=== PATIENT | female | born 1960 | race African-American/Black ===

== ENCOUNTER 2017-04-20 19:08 | Observation (INO) ==
[2017-04-20] MEDS ORDERED: KETOROLAC 30 MG/1 ML VIAL IV STA (21:37)
[2017-04-20] MEDS ORDERED: NITROGLYCERIN 2% OINT 1 INCH/GM PACK TOP STA (21:37)
[2017-04-20] MEDS ORDERED: ASPIRIN 325 MG TABLET PO STA (21:37)
[2017-04-20] MEDS ORDERED: SODIUM CHLORIDE 0.9% 500 ML IV STA (21:37)
[2017-04-20] MEDS ORDERED: ASPIRIN 325 MG TABLET ONE (22:02)
[2017-04-20] MEDS ORDERED: KETOROLAC 30 MG/1 ML VIAL ONE (22:02)
[2017-04-20] MEDS ORDERED: NITROGLYCERIN 2% OINT 1 INCH/GM PACK TOP ONE (22:02)
[2017-04-20 22:28] LABS: Basophils % 0.5 % (0.0-0.8); Eosinophils # 0.1 10*3/uL (0.0-0.87); Eosinophils % 2.1 % (0.00-10.9); Hematocrit 35.7 VOL% (35.7-47.0); Hemoglobin 11.4 GM/DL (12.0-16.0); Immature Granulocytes % 0.5 %; Immature Granulocytes Absolute 0.03 #; Lymphocytes # 1.2 10*3/uL (1.4-4.0); Lymphocytes % 19.2 % (21.3-54.2); Mean Corpuscular HGB Conc 31.9 GM/DL (32-36); Mean Corpuscular Hemoglobin 31 PG (27-34); Mean Platelet Volume 8.7 FL (9.6-12.0); Monocytes # 0.6 10*3/uL (0.11-0.8); Monocytes % 9.9 % (1.7-12.7); Neutrophils # 4.1 10*3/uL (1.4-7.4); Neutrophils % 67.8 % (38.7-73.9); Platelet Count 232 T/CUMM (130-400); Red Blood Count 3.72 MC/CUMM (3.8-5.5); Red Cell Distribution Width 11.8 % (9.3-17.3); White Blood Count 6.1 T/CUMM (4-12)
[2017-04-20 22:37] LABS: Apearance,Urine Slightly Hazy (Clear); Bilirubin,Urine Negative (Negative); Blood, Urine Negative (Negative); Glucose,Urine (UA) Negative (Negative); Hyaline Casts,Urine 5 /LPF (0-3); Ketones,Urine Negative (Negative); Mucus,Urine Many /LPF (Occasional); Nitrite,Urine Negative (Negative); Protein,Urine Negative; RBC,Urine 1 /HPF (0-4); Squamous Epithelial Cell,Urine Occasional /HPF (0-10); Urine Color Yellow (Yellow); Urine Specific Gravity 1.028 (1.001-1.035); WBC,Urine 1 /HPF (0-6)
[2017-04-20 22:42] LABS: Alanine Aminotransferase 25 U/L (13-56); Albumin 3.4 G/DL (3.4-5.0); Alkaline Phosphatase 103 U/L (45-117); Aspartate Amino Transferase 30 U/L (0-37); Bilirubin,Total < 0.39 MG/DL (0.2-1.0); Blood Urea Nitrogen 22 MG/DL (7-18); Calcium 8.3 MG/DL (8.5-10.1); Glucose 116 MG/DL (74-106); Osmolality,Calculated 282.4 MOS/KG (273-304); Potassium 3.7 MMOL/L (3.5-5.1); Sodium 140 MMOL/L (136-145); Total Protein 7.1 G/DL (6.4-8.3)
[2017-04-20 22:46] LABS: INR 0.9
[2017-04-20 22:55] LABS: Troponin I Only 0.058 NG/ML (0.00-0.045)
[2017-04-21] MEDS ORDERED: POTASSIUM CHLORIDE 20 MEQ TABLET PO PRN (01:49)
[2017-04-21 02:28] LABS: Risk Ratio 3.02; VLDL CHOLESTEROL 20.2 MG/DL
[2017-04-21] MEDS: ENOXAPARIN 40 MG/0.4 ML SYRINGE SUBCUT SCH ×2 (03:17→20:55)
[2017-04-21] MEDS: NITROGLYCERIN 2% OINT 1 INCH/GM PACK TOP SCH ×4 (05:37→23:05)
[2017-04-21] MEDS ORDERED: ASPIRIN EC 325 MG TABLET PO SCH (09:00)
[2017-04-21] MEDS: CLOPIDOGREL 75 MG TABLET PO SCH (09:54)
[2017-04-21] MEDS: ASPIRIN CHEW 81 MG TABLET PO SCH (09:54)
[2017-04-21] MEDS: PANTOPRAZOLE 40 MG TABLET PO SCH (09:54)
[2017-04-21] MEDS: POLYETHYLENE GLYCOL POWDER 17 GM PACK PO SCH (09:54)
[2017-04-21] MEDS: LOSARTAN 50 MG TABLET PO SCH (09:55)
[2017-04-21] MEDS: CARVEDILOL 6.25 MG TABLET PO SCH ×2 (14:22→20:55)
[2017-04-21] MEDS: ONDANSETRON 4 MG/2 ML VIAL IV PRN (16:09)
[2017-04-21] MEDS: METHOCARBAMOL 500 MG TABLET PO SCH (20:55)
[2017-04-22 05:42] LABS: Basophils % 1.2 % (0.0-0.8); Eosinophils # 0.1 10*3/uL (0.0-0.87); Eosinophils % 4.7 % (0.00-10.9); Hematocrit 32.7 VOL% (35.7-47.0); Hemoglobin 10.6 GM/DL (12.0-16.0); Immature Granulocytes % 0.4 %; Immature Granulocytes Absolute 0.01 #; Lymphocytes # 0.7 10*3/uL (1.4-4.0); Lymphocytes % 26.8 % (21.3-54.2); Mean Corpuscular HGB Conc 32.4 GM/DL (32-36); Mean Corpuscular Hemoglobin 31 PG (27-34); Mean Corpuscular Volume 95.3 FL (87-102); Mean Platelet Volume 8.9 FL (9.6-12.0); Monocytes # 0.3 10*3/uL (0.11-0.8); Monocytes % 10.2 % (1.7-12.7); Neutrophils # 1.4 10*3/uL (1.4-7.4); Neutrophils % 56.7 % (38.7-73.9); Platelet Count 204 T/CUMM (130-400); Red Blood Count 3.43 MC/CUMM (3.8-5.5); Red Cell Distribution Width 11.7 % (9.3-17.3); White Blood Count 2.5 T/CUMM (4-12)
[2017-04-22 05:51] LABS: Hypochromasia Slight; Microcytosis Slight; Ovalocytes Slight; Platelet Estimate Normal
[2017-04-22 05:55] LABS: Calcium 8.6 MG/DL (8.5-10.1); Magnesium 2.1 MG/DL (1.8-2.4); Osmolality,Calculated 277.5 MOS/KG (273-304)
[2017-04-22] MEDS: NITROGLYCERIN 2% OINT 1 INCH/GM PACK TOP SCH ×3 (06:40→17:07)
[2017-04-22] MEDS: ONDANSETRON 4 MG/2 ML VIAL IV PRN (10:04)
[2017-04-22] MEDS ORDERED: REGADENOSON 0.4 MG/5 ML SYRINGE IV ONE (10:17)
[2017-04-22] MEDS: POLYETHYLENE GLYCOL POWDER 17 GM PACK PO SCH ×3 (13:23→20:29)
[2017-04-22] MEDS: LOSARTAN 50 MG TABLET PO SCH (13:24)
[2017-04-22] MEDS: METHOCARBAMOL 500 MG TABLET PO SCH ×3 (13:24→20:29)
[2017-04-22] MEDS: PANTOPRAZOLE 40 MG TABLET PO SCH (13:24)
[2017-04-22] MEDS: ASPIRIN CHEW 81 MG TABLET PO SCH (13:24)
[2017-04-22] MEDS: CLOPIDOGREL 75 MG TABLET PO SCH (13:24)
[2017-04-22] MEDS: CARVEDILOL 6.25 MG TABLET PO SCH ×2 (13:24→20:29)
[2017-04-22] MEDS: DOCUSATE SODIUM 100 MG CAPSULE PO SCH ×2 (13:46→20:29)
[2017-04-22] MEDS: ENOXAPARIN 40 MG/0.4 ML SYRINGE SUBCUT SCH (20:29)
[2017-04-23 05:52] LABS: Basophils % 0.6 % (0.0-0.8); Eosinophils # 0.1 10*3/uL (0.0-0.87); Eosinophils % 3.8 % (0.00-10.9); Hematocrit 34.5 VOL% (35.7-47.0); Hemoglobin 11.5 GM/DL (12.0-16.0); Immature Granulocytes % 0.3 %; Immature Granulocytes Absolute 0.01 #; Lymphocytes # 1.1 10*3/uL (1.4-4.0); Lymphocytes % 35.4 % (21.3-54.2); Mean Corpuscular HGB Conc 33.3 GM/DL (32-36); Mean Corpuscular Hemoglobin 31 PG (27-34); Mean Corpuscular Volume 93.5 FL (87-102); Mean Platelet Volume 8.8 FL (9.6-12.0); Monocytes # 0.4 10*3/uL (0.11-0.8); Monocytes % 12.2 % (1.7-12.7); Neutrophils # 1.5 10*3/uL (1.4-7.4); Neutrophils % 47.7 % (38.7-73.9); Platelet Count 222 T/CUMM (130-400); Red Blood Count 3.69 MC/CUMM (3.8-5.5); Red Cell Distribution Width 11.7 % (9.3-17.3); White Blood Count 3.2 T/CUMM (4-12)
[2017-04-23 06:19] LABS: Calcium 8.8 MG/DL (8.5-10.1); Magnesium 2.2 MG/DL (1.8-2.4); Osmolality,Calculated 277.5 MOS/KG (273-304); Potassium 3.9 MMOL/L (3.5-5.1)
[2017-04-23] MEDS ORDERED: predniSONE 5 MG TABLET PO SCH (08:00)
[2017-04-23] MEDS: CLOPIDOGREL 75 MG TABLET PO SCH (08:42)
[2017-04-23] MEDS: METHOCARBAMOL 500 MG TABLET PO SCH (08:42)
[2017-04-23] MEDS: DOCUSATE SODIUM 100 MG CAPSULE PO SCH (08:42)
[2017-04-23] MEDS: ASPIRIN CHEW 81 MG TABLET PO SCH (08:42)
[2017-04-23] MEDS: PANTOPRAZOLE 40 MG TABLET PO SCH (08:43)
[2017-04-23] MEDS: CARVEDILOL 6.25 MG TABLET PO SCH (08:43)
[2017-04-23] MEDS: POLYETHYLENE GLYCOL POWDER 17 GM PACK PO SCH ×2 (08:43→10:44)
[2017-04-23] MEDS: LOSARTAN 50 MG TABLET PO SCH (08:43)
[2017-04-23 11:07] VITALS: BP 102/59
[2017-04-23] MEDS ORDERED: traMADol 50 MG TABLET PO PRN (13:02)
== END 2017-04-23 14:39 | disposition home or self-care (01) ==
LOC: N.ED 19:08 → N.EDINP 19:08 → SUATTDRO 04-21 01:49 → N.TELEN 04-21 02:26
PROVIDERS: ADMIT Pediatrics; ATTEND Hospitalist

== ENCOUNTER 2020-03-04 10:34 | Observation (INO) ==
[2020-03-04] MEDS ORDERED: ASPIRIN 325 MG TABLET PO STA (11:17)
[2020-03-04] MEDS ORDERED: NITROGLYCERIN SL 0.4 MG TABLET SL PRN (11:42)
[2020-03-04] MEDS ORDERED: NITROGLYCERIN 2% OINT 1 INCH/GM PACK TOP STA (11:42)
[2020-03-04 12:32] LABS: Osmolality,Calculated 273.8 MOS/KG (273-304)
[2020-03-04 12:48] LABS: Basophils % 0.7 % (0.0-0.8); Eosinophils # 0.1 10*3/uL (0.0-0.87); Eosinophils % 2.5 % (0.00-10.9); Hematocrit 36.3 VOL% (35.7-47.0); Hemoglobin 12.2 GM/DL (12.0-16.0); Immature Granulocytes % 0.2 %; Immature Granulocytes Absolute 0.01 #; Lymphocytes # 1.6 10*3/uL (1.4-4.0); Lymphocytes % 37.4 % (21.3-54.2); Mean Corpuscular HGB Conc 33.6 GM/DL (32-36); Mean Corpuscular Volume 90.1 FL (87-102); Mean Platelet Volume 8.8 FL (9.6-12.0); Monocytes % 7.9 % (1.7-12.7); Neutrophils % 51.3 % (38.7-73.9); Platelet Count 289 T/CUMM (130-400); Red Blood Count 4.03 MC/CUMM (3.8-5.5); Red Cell Distribution Width 11.9 % (9.3-17.3); White Blood Count 4.3 T/CUMM (4-12)
[2020-03-04] MEDS ORDERED: SIMETHICONE CHEW 125 MG TABLET PO PRN (14:25)
[2020-03-04] MEDS ORDERED: hydrALAZINE 20 MG/1 ML VIAL IV PRN (14:25)
[2020-03-04] MEDS ORDERED: MORPHINE 4 MG/1 ML VIAL IV PRN (14:25)
[2020-03-04] MEDS ORDERED: LACTULOSE 20 GM/30 ML UDCUP PO PRN (14:25)
[2020-03-04] MEDS ORDERED: traZODone 50 MG TABLET PO PRN (14:25)
[2020-03-04] MEDS ORDERED: DEXTROSE 50% 25 GM/50 ML VIAL IV PRN (14:25)
[2020-03-04] MEDS ORDERED: ALUMINUM/MAGNES/SIMETH MAX STR 30 ML UDCUP PO PRN (14:25)
[2020-03-04] MEDS ORDERED: ZALEPLON 5 MG CAPSULE PO PRN (14:25)
[2020-03-04] MEDS ORDERED: diphenhydrAMINE CAP 25 MG CAPSULE PO PRN (14:25)
[2020-03-04] MEDS ORDERED: ONDANSETRON 4 MG/2 ML VIAL IV PRN (14:25)
[2020-03-04] MEDS ORDERED: BISACODYL 5 MG TABLET PO PRN (14:25)
[2020-03-04] MEDS ORDERED: DOCUSATE SODIUM 100 MG CAPSULE PO PRN (14:25)
[2020-03-04] MEDS ORDERED: guaiFENesin/DM ER 600-30 MG TABLET PO PRN (14:25)
[2020-03-04] MEDS ORDERED: GLUCAGON 1 MG VIAL IM PRN (14:25)
[2020-03-04] MEDS ORDERED: ACETAMINOPHEN 325 MG TABLET PO PRN (14:25)
[2020-03-04 14:28] LABS: Albumin 3.9 G/DL (3.4-5.0); Bilirubin,Direct 0.16 MG/DL (0.0-0.20); Bilirubin,Indirect 0.4 MG/DL (0.0-1.0); Bilirubin,Total 0.6 MG/DL (0.2-1.0); Total Protein 8.2 G/DL (6.4-8.3)
[2020-03-04] MEDS: ENOXAPARIN 40 MG/0.4 ML SYRINGE SUBCUT SCH (17:55)
[2020-03-04] MEDS ORDERED: PNEUMOCOCCAL VACCINE (13 VALENT) 0.5 ML SYRINGE IM ONE (18:01)
[2020-03-04] MEDS ORDERED: INFLUENZA VIRUS VACCINE 0.5 ML SYRINGE IM ONE (18:01)
[2020-03-04] MEDS: carvediloL 6.25 MG TABLET PO SCH (20:34)
[2020-03-05 06:23] LABS: Basophils % 0.5 % (0.0-0.8); Eosinophils # 0.1 10*3/uL (0.0-0.87); Hematocrit 35.4 VOL% (35.7-47.0); Hemoglobin 11.4 GM/DL (12.0-16.0); Immature Granulocytes % 0.2 %; Immature Granulocytes Absolute 0.01 #; Lymphocytes # 1.4 10*3/uL (1.4-4.0); Lymphocytes % 31.4 % (21.3-54.2); Mean Corpuscular HGB Conc 32.2 GM/DL (32-36); Mean Corpuscular Volume 92.4 FL (87-102); Mean Platelet Volume 8.9 FL (9.6-12.0); Neutrophils % 53.9 % (38.7-73.9); Platelet Count 252 T/CUMM (130-400); Red Blood Count 3.83 MC/CUMM (3.8-5.5); Red Cell Distribution Width 11.9 % (9.3-17.3); White Blood Count 4.4 T/CUMM (4-12)
[2020-03-05 07:12] LABS: Albumin 3.2 G/DL (3.4-5.0); Bilirubin,Total 0.5 MG/DL (0.2-1.0); Calcium 8.9 MG/DL (8.5-10.1); Osmolality,Calculated 278.5 MOS/KG (273-304); Risk Ratio 4.49; Thyroid Stimulating Hormone 0.299 uIU/ml (0.358-3.74); Total Protein 7.7 G/DL (6.4-8.3); VLDL CHOLESTEROL 25.2 MG/DL
[2020-03-05] MEDS ORDERED: azaTHIOprine 50 MG TABLET PO SCH (09:00)
[2020-03-05] MEDS ORDERED: ASPIRIN EC 81 MG TABLET PO SCH (09:00)
[2020-03-05] MEDS ORDERED: PANTOPRAZOLE 40 MG TABLET PO SCH (09:00)
[2020-03-05 09:16] LABS: Free T4 (Free Thyroxine) 0.99 NG/DL (0.76-1.46)
[2020-03-05] MEDS: carvediloL 6.25 MG TABLET PO SCH (09:47)
[2020-03-05] MEDS: ENOXAPARIN 40 MG/0.4 ML SYRINGE SUBCUT SCH (15:17)
[2020-03-05 15:33] VITALS: BP 107/47
[2020-03-05] MEDS ORDERED: ROSUVASTATIN 20 MG TABLET PO SCH (21:00)
[2020-03-06] MEDS ORDERED: COENZYME Q10 100 MG CAPSULE PO SCH (09:00)
== END 2020-03-05 15:47 | disposition home or self-care (01) ==
LOC: N.ED 10:34 → N.EDINP 10:34 → N.TELEN 15:31
PROVIDERS: ADMIT Internal Medicine; ATTEND Internal Medicine

== ENCOUNTER 2020-06-01 12:58 | Observation (INO) ==
[2020-06-01 14:12] LABS: Basophils % 0.6 % (0.0-0.8); Eosinophils # 0.1 10*3/uL (0.0-0.87); Eosinophils % 2.8 % (0.00-10.9); Hematocrit 37.4 VOL% (35.7-47.0); Hemoglobin 12.2 GM/DL (12.0-16.0); Immature Granulocytes % 0.4 %; Immature Granulocytes Absolute 0.02 #; Lymphocytes # 1.4 10*3/uL (1.4-4.0); Lymphocytes % 30.4 % (21.3-54.2); Mean Corpuscular HGB Conc 32.6 GM/DL (32-36); Mean Corpuscular Volume 92.1 FL (87-102); Mean Platelet Volume 8.7 FL (9.6-12.0); Monocytes % 6.2 % (1.7-12.7); Neutrophils % 59.6 % (38.7-73.9); Platelet Count 285 T/CUMM (130-400); Red Blood Count 4.06 MC/CUMM (3.8-5.5); Red Cell Distribution Width 11.9 % (9.3-17.3); White Blood Count 4.7 T/CUMM (4-12)
[2020-06-01 14:25] LABS: Albumin 3.8 G/DL (3.4-5.0); Bilirubin,Total 0.5 MG/DL (0.2-1.0); Calcium 9.6 MG/DL (8.5-10.1); Osmolality,Calculated 273.8 MOS/KG (273-304); Potassium 3.7 MMOL/L (3.5-5.1); Total Protein 8.2 G/DL (5.0-7.5)
[2020-06-01] MEDS ORDERED: ASPIRIN CHEW 81 MG TABLET PO STA (15:13)
[2020-06-01] MEDS ORDERED: ENOXAPARIN 30 MG/0.3 ML SYRINGE SUBCUT STA (15:13)
[2020-06-01] MEDS ORDERED: ASPIRIN 325 MG TABLET ONE (15:17)
[2020-06-01] MEDS ORDERED: ENOXAPARIN 80 MG/0.8 ML SYRINGE SUBCUT ONE (15:17)
[2020-06-01] MEDS ORDERED: ONDANSETRON 4 MG/2 ML VIAL IV PRN (16:01)
[2020-06-01] MEDS ORDERED: MORPHINE 4 MG/1 ML VIAL IV PRN (16:01)
[2020-06-01] MEDS ORDERED: ZALEPLON 5 MG CAPSULE PO PRN (16:01)
[2020-06-01] MEDS ORDERED: DEXTROSE 50% 25 GM/50 ML VIAL IV PRN (16:01)
[2020-06-01] MEDS ORDERED: ACETAMINOPHEN 325 MG TABLET PO PRN (16:01)
[2020-06-01] MEDS ORDERED: GLUCAGON 1 MG VIAL IM PRN (16:01)
[2020-06-01 16:28] LABS: Risk Ratio 3.87
[2020-06-01] MEDS ORDERED: ENOXAPARIN 80 MG/0.8 ML SYRINGE SUBCUT SCH (16:30)
[2020-06-01] MEDS: NITROGLYCERIN 2% OINT 1 INCH/GM PACK TOP SCH (18:26)
[2020-06-02] MEDS: NITROGLYCERIN 2% OINT 1 INCH/GM PACK TOP SCH ×4 (00:19→18:06)
[2020-06-02] MEDS ORDERED: ENOXAPARIN 80 MG/0.8 ML SYRINGE SUBCUT SCH (03:30)
[2020-06-02 08:03] LABS: Troponin I 0.025 NG/ML (0.00-0.045)
[2020-06-02] MEDS: ASPIRIN EC 81 MG TABLET PO SCH (08:45)
[2020-06-02] MEDS: PANTOPRAZOLE 40 MG TABLET PO SCH (08:45)
[2020-06-02] MEDS: carvediloL 6.25 MG TABLET PO SCH ×2 (08:45→18:06)
[2020-06-02] MEDS: ENOXAPARIN 80 MG/0.8 ML SYRINGE SUBCUT SCH ×2 (08:46→21:43)
[2020-06-02] MEDS ORDERED: POTASSIUM CHLORIDE RIDER 10 MEQ in PREMIX 1 EACH IV PRN (11:57)
[2020-06-02] MEDS ORDERED: DIAZEPAM 5 MG TABLET PO ONE (11:57)
[2020-06-02] MEDS ORDERED: diphenhydrAMINE CAP 50 MG CAPSULE PO ONE (11:57)
[2020-06-02] MEDS ORDERED: MAGNESIUM SULF RIDER 2 GM in PREMIX 1 EACH IV PRN (11:57)
[2020-06-02 12:51] LABS: Basophils # 0.1 10*3/uL (0.0-0.2); Eosinophils # 0.2 10*3/uL (0.0-0.87); Hematocrit 36.3 VOL% (35.7-47.0); Hemoglobin 11.7 GM/DL (12.0-16.0); Immature Granulocytes % 0.2 %; Immature Granulocytes Absolute 0.01 #; Lymphocytes # 1.6 10*3/uL (1.4-4.0); Lymphocytes % 34.2 % (21.3-54.2); Mean Corpuscular HGB Conc 32.2 GM/DL (32-36); Mean Corpuscular Volume 95.3 FL (87-102); Mean Platelet Volume 9.1 FL (9.6-12.0); Monocytes % 10.1 % (1.7-12.7); Neutrophils % 50.5 % (38.7-73.9); Platelet Count 268 T/CUMM (130-400); Red Blood Count 3.81 MC/CUMM (3.8-5.5); Red Cell Distribution Width 11.9 % (9.3-17.3); White Blood Count 4.8 T/CUMM (4-12)
[2020-06-02 12:58] LABS: Osmolality,Calculated 276.7 MOS/KG (273-304); Potassium 3.5 MMOL/L (3.5-5.1)
[2020-06-02] MEDS: SODIUM CHLORIDE 0.45% 1,000 ML IV SCH ×2 (13:01→21:42)
[2020-06-02] MEDS ORDERED: MIDAZOLAM 2 MG/2 ML VIAL ONE (13:56)
[2020-06-02] MEDS ORDERED: NITROGLYCERIN DRIP 50 MG/250 ML BOTTLE IV ONE (14:00)
[2020-06-02] MEDS ORDERED: HEPARIN/NACL 0.9% 2 UNITS/ML 1,000 ML IV ONE (14:00)
[2020-06-02] MEDS ORDERED: LIDOCAINE 1% 20 ML VIAL ONE (14:00)
[2020-06-02] MEDS ORDERED: VERAPAMIL 5 MG/2 ML VIAL ONE (14:00)
[2020-06-02] MEDS ORDERED: HYDROmorphone 2 MG/1 ML VIAL ONE (14:00)
[2020-06-02] MEDS ORDERED: TIROFIBAN 5,000 MCG/100 ML PREMIX IV ONE (14:25)
[2020-06-02] MEDS ORDERED: TICAGRELOR 90 MG TABLET ONE (14:51)
[2020-06-02] MEDS ORDERED: ONDANSETRON 4 MG/2 ML VIAL ONE (14:54)
[2020-06-02] MEDS ORDERED: SODIUM CHLORIDE 0.9% 1,000 ML IV SCH (15:00)
[2020-06-02] MEDS ORDERED: ROSUVASTATIN 20 MG TABLET PO SCH ×2 (21:00)
[2020-06-02] MEDS: TICAGRELOR 90 MG TABLET PO SCH (21:43)
[2020-06-03] MEDS: NITROGLYCERIN 2% OINT 1 INCH/GM PACK TOP SCH ×2 (01:09→05:32)
[2020-06-03 05:18] LABS: Basophils % 0.4 % (0.0-0.8); Eosinophils # 0.1 10*3/uL (0.0-0.87); Hematocrit 33.4 VOL% (35.7-47.0); Hemoglobin 11.1 GM/DL (12.0-16.0); Immature Granulocytes % 0.4 %; Immature Granulocytes Absolute 0.02 #; Lymphocytes % 21.3 % (21.3-54.2); Mean Corpuscular HGB Conc 33.2 GM/DL (32-36); Mean Corpuscular Volume 91.8 FL (87-102); Mean Platelet Volume 8.7 FL (9.6-12.0); Monocytes % 8.9 % (1.7-12.7); Platelet Count 223 T/CUMM (130-400); Red Blood Count 3.64 MC/CUMM (3.8-5.5); Red Cell Distribution Width 11.8 % (9.3-17.3); White Blood Count 4.7 T/CUMM (4-12)
[2020-06-03 05:31] LABS: Calcium 8.6 MG/DL (8.5-10.1); Osmolality,Calculated 275.5 MOS/KG (273-304); Potassium 3.5 MMOL/L (3.5-5.1)
[2020-06-03 05:35] LABS: Troponin I 0.903 NG/ML (0.00-0.045)
[2020-06-03] MEDS: SODIUM CHLORIDE 0.45% 1,000 ML IV SCH (05:50)
[2020-06-03] MEDS: TICAGRELOR 90 MG TABLET PO SCH (08:13)
[2020-06-03] MEDS: PANTOPRAZOLE 40 MG TABLET PO SCH (08:14)
[2020-06-03] MEDS: ASPIRIN EC 81 MG TABLET PO SCH (08:14)
[2020-06-03] MEDS: carvediloL 6.25 MG TABLET PO SCH (08:14)
[2020-06-03] MEDS: ENOXAPARIN 80 MG/0.8 ML SYRINGE SUBCUT SCH (08:51)
[2020-06-03] MEDS ORDERED: azaTHIOprine 50 MG TABLET PO SCH (09:00)
[2020-06-03 11:34] VITALS: BP 129/62
== END 2020-06-03 11:42 | disposition home or self-care (01) ==
LOC: N.ED 12:58 → N.EDINP 12:58 → N.5E 17:13 → N.TELEN 06-02 16:11
PROVIDERS: ADMIT Internal Medicine; ATTEND Internal Medicine
PROC: CLCCHCL (ICD-10-PCS; 2020-06-02 15:15)

== ENCOUNTER 2020-12-22 10:23 | Observation (INO) ==
[2020-12-22] MEDS ORDERED: MORPHINE 2 MG/1 ML SYRINGE IV STA (10:48)
[2020-12-22] MEDS ORDERED: ONDANSETRON 4 MG/2 ML VIAL ONE (10:58)
[2020-12-22 11:05] LABS: Basophils % 0.5 % (0.0-0.8); Eosinophils # 0.1 10*3/uL (0.0-0.87); Hematocrit 33.8 VOL% (35.7-47.0); Hemoglobin 10.8 GM/DL (12.0-16.0); Immature Granulocytes % 0.8 %; Immature Granulocytes Absolute 0.05 #; Lymphocytes # 1.3 10*3/uL (1.4-4.0); Lymphocytes % 21.4 % (21.3-54.2); Mean Corpuscular Volume 93.6 FL (87-102); Mean Platelet Volume 9.3 FL (9.6-12.0); Monocytes % 4.7 % (1.7-12.7); Neutrophils % 70.6 % (38.7-73.9); Platelet Count 225 T/CUMM (130-400); Red Blood Count 3.61 MC/CUMM (3.8-5.5); Red Cell Distribution Width 11.9 % (9.3-17.3); White Blood Count 5.9 T/CUMM (4-12)
[2020-12-22] MEDS ORDERED: ONDANSETRON 4 MG/2 ML VIAL IV STA (11:14)
[2020-12-22 11:16] LABS: PT Patient Result 11.5 SECS (10.5-12.0); Partial Thromboplastin Time 22.5 SECS (23.9-33.8)
[2020-12-22 11:25] LABS: Alanine Aminotransferase 12 U/L (13-56); Albumin 3.5 G/DL (3.4-5.0); Alkaline Phosphatase 101 U/L (45-117); Aspartate Amino Transferase 22 U/L (0-37); Blood Urea Nitrogen 18 MG/DL (7-18); Calcium 8.4 MG/DL (8.5-10.1); Carbon Dioxide 25 MMOL/L (21-32); Estimated Glom Filtration Rate 92 ML/MIN; Glucose 141 MG/DL (74-106); Osmolality,Calculated 280.5 MOS/KG (273-304); Potassium 3.6 MMOL/L (3.5-5.1); Sodium 139 MMOL/L (136-145); Total Protein 7.2 G/DL (6.4-8.2)
[2020-12-22 11:28] LABS: Amorphous Crystals,Urine Occasional /HPF (Few); Bilirubin,Urine Negative (Negative); Blood, Urine Negative (Negative); Glucose,Urine (UA) Negative (Negative); Ketones,Urine Negative (Negative); Mucus,Urine Occasional /LPF (Occasional); Nitrite,Urine Negative (Negative); Protein,Urine Negative; RBC,Urine 4 /HPF (0-4); Squamous Epithelial Cell,Urine Occasional /HPF (0-10); Urine Appearance CLEAR (Clear); Urine Color Yellow (Yellow)
[2020-12-22 12:50] LABS: Barbiturates Screen,Urine Negative (Negative); Benzodiazepines Screen,Urine Negative (Negative); Cannabinoid Screen,Urine Negative (Negative); Opiate Screen,Urine Positive (Negative); Phencyclidine Screen,Urine Negative (Negative)
[2020-12-22] MEDS ORDERED: fentaNYL 100 MCG/2 ML VIAL IV STA (13:35)
[2020-12-22] MEDS ORDERED: fentaNYL 100 MCG/2 ML VIAL ONE (13:47)
[2020-12-22] MEDS ORDERED: SODIUM CHLORIDE 0.9% 500 ML IV STA ×2 (14:53→16:52)
[2020-12-22] MEDS ORDERED: cefTRIAXone 2,000 MG in SODIUM CHLORIDE 0.9% 100 ML IV STA (17:15)
[2020-12-22] MEDS ORDERED: ONDANSETRON 4 MG/2 ML VIAL IV PRN (18:04)
[2020-12-22] MEDS ORDERED: ACETAMINOPHEN 325 MG TABLET PO PRN (18:04)
[2020-12-22] MEDS: HYDROmorphone 2 MG/1 ML VIAL IV PRN (22:43)
[2020-12-23 04:51] LABS: Basophils % 0.3 % (0.0-0.8); Eosinophils # 0.2 10*3/uL (0.0-0.87); Hematocrit 29.5 VOL% (35.7-47.0); Hemoglobin 9.4 GM/DL (12.0-16.0); Immature Granulocytes % 0.3 %; Immature Granulocytes Absolute 0.02 #; Lymphocytes # 1.7 10*3/uL (1.4-4.0); Lymphocytes % 25.2 % (21.3-54.2); Mean Corpuscular HGB Conc 31.9 GM/DL (32-36); Mean Corpuscular Volume 93.9 FL (87-102); Mean Platelet Volume 9.7 FL (9.6-12.0); Monocytes % 8.4 % (1.7-12.7); Neutrophils % 62.8 % (38.7-73.9); Platelet Count 194 T/CUMM (130-400); Red Blood Count 3.14 MC/CUMM (3.8-5.5); Red Cell Distribution Width 11.9 % (9.3-17.3); White Blood Count 6.6 T/CUMM (4-12)
[2020-12-23] MEDS: KETOROLAC 30 MG/1 ML VIAL IV PRN ×2 (06:27→13:03)
[2020-12-23] MEDS: PANTOPRAZOLE 40 MG TABLET PO SCH (09:19)
[2020-12-23] MEDS: HYDROmorphone 2 MG/1 ML VIAL IV PRN (20:25)
[2020-12-24] MEDS: KETOROLAC 30 MG/1 ML VIAL IV PRN ×2 (06:02→14:13)
[2020-12-24] MEDS ORDERED: propofoL 200 MG/20 ML VIAL IV ONE (06:47)
[2020-12-24] MEDS ORDERED: fentaNYL 100 MCG/2 ML VIAL ONE (06:47)
[2020-12-24] MEDS ORDERED: LIDOCAINE 2% 5 ML VIAL ONE (06:47)
[2020-12-24] MEDS ORDERED: ONDANSETRON 4 MG/2 ML VIAL ONE (06:47)
[2020-12-24] MEDS ORDERED: DEXAMETHASONE 4 MG/1 ML VIAL ONE (06:47)
[2020-12-24] MEDS ORDERED: ePHEDrine 50 MG/ML VIAL ONE (07:52)
[2020-12-24] MEDS ORDERED: ceFAZolin 1,000 MG VIAL ONE (08:08)
[2020-12-24] MEDS: PANTOPRAZOLE 40 MG TABLET PO SCH (08:09)
[2020-12-24] MEDS ORDERED: SEVOFLURANE 1 UNIT/15 MINUTE INH ONE ×3 (08:13→08:42)
[2020-12-24] MEDS ORDERED: ACETAMINOPHEN INJ 1,000 MG/100 ML VIAL IV ONE (08:17)
[2020-12-24] MEDS ORDERED: LACTATED RINGERS 1,000 ML IV ONE (08:58)
[2020-12-24] MEDS: HYDROmorphone 2 MG/1 ML VIAL IV PRN ×4 (09:25→09:53)
[2020-12-24] MEDS ORDERED: MEPERIDINE 25 MG/1 ML VIAL IV PRN (09:31)
[2020-12-24] MEDS ORDERED: ONDANSETRON 4 MG/2 ML VIAL IV PRN (09:31)
[2020-12-24 15:29] VITALS: BP 133/58
== END 2020-12-24 18:00 | disposition home or self-care (01) ==
LOC: EDBD → EDUNIT# → N.EDINP 10:23 → N.ED 10:23 → N.3E 18:30
PROVIDERS: ADMIT Surgery; ATTEND Surgery